=== PATIENT | male | born 1965 | race American Indian/Alaskan Native ===

== ENCOUNTER 2016-12-21 10:47 | Outpatient (CLI) | payer MEDICARE ==
--- NOTE | 2016-12-21 11:29 | XRay Report ---
Lumbar spine, two-view: Postoperative followup. There is an anterior L5-S1 fusion stabilized with anterior hardware and a spacer. A small bone erosion is noted at the inferior lip of the anterior L5 body. With this exception the exam is unremarkable with good alignment and preservation of the interspaces. No prior study for comparison. Impression: L5-S1 fusion with no apparent complication.
== END 2016-12-21 10:48 | disposition home or self-care (01) ==
LOC: SPVIMAG 10:47
PROVIDERS: ATTEND Neurological Surgery
DX: M51.36 Other intervertebral disc degeneration, lumbar region (principal); M43.27 Fusion of spine, lumbosacral region
CPT/HCPCS: 72100